=== PATIENT | male | born 1990 | race African-American/Black ===

== ENCOUNTER 2020-07-18 15:23 | Emergency (ER) | payer OTHER, SELFPAY ==
--- NOTE | ~2020-07-18 | XR_ITS ---
EXAMINATION: XR chest 2V DATE: 07/18/2020 16:20 INDICATION: Left chest pain. TECHNIQUE: Frontal and lateral views of the chest were obtained. COMPARISON: None. FINDINGS: The chest demonstrates clear lungs without pneumonia, pleural effusion, or pneumothorax. Th e heart size is normal. IMPRESSION: 1. No acute cardiopulmonary disease. Reviewed, dictated and finalized at location B.
[2020-07-18 15:40] VITALS: BP 155/88; PULSE 84; RESP 18; TEMP 36.6; O2SAT 98
--- NOTE | 2020-07-18 15:47 | ECG_ITS ---
Measurements Intervals [place] Rate: 87 P: 34 ND: 168 QRS: -5 QRSD: 101 T: 29 QT: 332 QTc: 400 Interpretive Statements SINUS RHYTHM ST ELEVATION CONSISTENT WITH INJURY, PERICARDITIS, OR EARLY REPOLARIZATION ABNORMAL ECG Electronically Signed On 07-18-2020 16:13:51 CDT by Jeanmarie Myrick D.O.
[2020-07-18 15:58] LABS: Basophils Percent Auto 0.3 % (0.2-1.2); Eosinophils Absolute Auto 0.1 K/mm3 (0-0.3); Eosinophils Percent Auto 1.7 % (0-4.4); Hematocrit 42.6 % (42.0-52.0); Hemoglobin 13.8 g/dL (14.0-18.0); Immature Granulocyte Absolute 0.02 K/mm3 (0.00-0.031); Immature Granulocyte Percent A 0.3 % (0-0.5); Lymphocytes Absolute Auto 2.84 K/mm3 (0.9-3.2); Lymphocytes Percent Auto 42.8 % (18.3-44.2); Mean Corpuscular HGB Conc 32.4 g/dl (32-36); Mean Corpuscular Hemoglobin 28.5 pg (26-34); Mean Platelet Volume 10.7 fl (7.4-10.4); Monocytes Absolute Auto 0.4 K/mm3 (0.1-0.6); Monocytes Percent Auto 5.6 % (2.6-8.5); Neutrophils Absolute Auto 3.3 K/mm3 (1.3-6.7); Neutrophils Percent Auto 49.3 % (45.5-73.1); Platelet Count Result 220 k/mm3 (150-375); Red Blood Count 4.84 M/mm3 (4.6-6.20); Red Cell Distribution Width 12.8 % (11.5-14.5); White Blood Count 6.6 K/mm3 (4.5-10.0)
[2020-07-18 16:10] LABS: Prothrombin Time 13.5 Seconds (11.1-14.7)
[2020-07-18 16:11] LABS: Partial Thromboplastin Time 31.3 SECONDS (22.3-36.8)
[2020-07-18 16:15] LABS: Anion Gap 5 mmol/L (8-16); Blood Urea Nitrogen 15 mg/dL (9-20); Calcium 9.3 mg/dL (8.4-10.2); Carbon Dioxide 28 mmol/L (22-30); Chloride 105 mmol/L (98-107); Estimated CRCL calculation 86 ml/min; Estimated Glomerular Filt Rate > 60; Glucose 109 mg/dL (75-110); Potassium 4.1 mmol/L (3.4-5.0); Sodium 138 mmol/L (137-145)
[2020-07-18 16:26] LABS: Troponin I < 0.012 ng/mL (0.000-0.034)
[2020-07-18 16:47] VITALS: PULSE 87
[2020-07-18 16:53] VITALS: BP 144/78; PULSE 82; RESP 18; O2SAT 98
--- NOTE | 2020-07-18 17:52 | ED.CHESTPAIN ---
HPI - Chest Pain General Chief Complaint: Chest Pain Stated Complaint: left side pain Time Seen by Provider: 07/18/20 16:47 Source: patient and RN notes reviewed Mode of arrival: ambulatory Limitations: no limitations History of Present Illness HPI narrative: Patient is a 30-year-old male who presents to emergency department for evaluation of abdominal and chest pain has been going on for over a month has seen his primary care for this was reassured but notes he continues to have the discomfort that is continuous in nature patient has not taken anything for his symptoms was prescribed a muscle relaxer in the past but has not taken it patient denies any cardiopulmonary disease patient on arrival is in the room in no distress. Related Data Allergies Allergy/AdvReac Type Severity Reaction Status Date / Time No Known Allergies Allergy Verified 07/18/20 17:02 Review of Systems Review of Systems: All systems reviewed & are unremarkable except as noted in HPI and below PMFSH Social History Social History (Updated 07/18/20 @ 17:54 by Rojelio Liz PA-C) Smoking status: Never smoker Substance use type: marijuana Exam Narrative: Exam Narrative: GENERAL: Well-appearing, well-nourished, and in no acute distress. HEAD: Normocephalic, atraumatic. EYES: PERRLA and EOMI. ENT: Nares clear, no rhinorrhea or epistaxis. Mucous membranes moist. NECK: Supple. No adenopathy or masses. CHEST: Clear to auscultation. No respiratory distress. No wheezes rales or rhonchi HEART: Regular rate and rhythm. No murmur heard. Normal peripheral pulses. ABDOMEN: Soft, nontender, nondistended EXTREMITIES: Normal range of motion. No edema. SKIN: Warm, dry, no rash. NEURO: No focal deficits. Alert and oriented x3. PSYCH: Normal mood and affect. Course Course Emergency Course: Patient presented with abdominal pain and chest pain which are largely reproducible in nature with breathing activity and movement patient in the room in no distress afebrile nontoxic-appearing ABCs and vital signs intact and stable patient has had the symptoms for over a month and will now be referred back to primary care with GI and cardiology consults and referrals as has been recommended by his primary care but is not followed up with the referrals Vital Signs Vital signs: Vital Signs Temperature 97.8 F 07/18/20 15:40 Pulse Rate 84 07/18/20 15:40 Respiratory Rate 18 07/18/20 15:40 Blood Pressure 155/88 H 07/18/20 15:40 Pulse Oximetry 98 07/18/20 15:40 Temperature 97.8 F 07/18/20 15:40 Pulse Rate 82 07/18/20 16:53 Respiratory Rate 18 07/18/20 16:53 Blood Pressure 144/78 H 07/18/20 16:53 Pulse Oximetry 98 07/18/20 16:53 MDM - Chest Pain MDM Narrative Medical decision making narrative: Patients EKGs and labs are without significant high risk changes. Cardiac risk factors were reviewed. Patient is felt likely to be low risk for ACS and reasonable for further risk stratification testing as an outpatient. Pain was not sudden or maximal in onset without tearing or ripping. quality. No other signs or symptoms to suggest aortic dissection. A low-risk Wells criteria is noted. PE is felt to be unlikely. No pneumonia or URI symptoms were seen on evaluation today. Patient is felt to b reasonable for continued evaluation as an outpatient. Lab Data Result diagrams: 07/18/20 15:52 07/18/20 15:52 Labs: Lab Results 07/18/20 07/18/20 07/18/20 Range/Units 15:52 15:52 15:52 WBC 6.6 (4.5-10.0) K/mm3 RBC 4.84 (4.6-6.20) M/mm3 Hgb 13.8 L (14.0-18.0) g/dL Hct 42.6 (42.0-52.0) % MCV 88.0 (80-100) fl MCH 28.5 (26-34) pg MCHC 32.4 (32-36) g/dl RDW 12.8 (11.5-14.5) % Plt Count 220 (150-375) k/mm3 MPV 10.7 H (7.4-10.4) fl Immature Gran % (Auto) 0.3 (0-0.5) % Neut % (Auto) 49.3 (45.5-73.1) % Lymph % (Auto) 42.8 (18.3-44.2) % [place] % (Auto) 5.6 (2.6-8.5)
[2020-07-18] MEDS: KETOROLAC (*BKC) 60 MG/2 ML VIAL IM (17:53)
[2020-07-18 18:04] VITALS: BP 144/89; PULSE 88; RESP 18; O2SAT 100
== END 2020-07-18 18:05 | disposition home or self-care (01) ==
PROVIDERS: Emergency Medicine; Emergency Provider Emergency Medicine
DX: R07.9 Chest pain, unspecified (principal)
CPT/HCPCS: 36415; 71046; 80048; 84484; 85025; 85610; 85730; 93005; 96372; 99284; J1885

== ENCOUNTER 2021-02-24 14:55 | Emergency (ER) | payer OTHER, SELFPAY ==
[2021-02-24 15:06] VITALS: BP 130/88; PULSE 78; RESP 18; TEMP 36.1; O2SAT 100
[2021-02-24 17:01] VITALS: BP 132/83; PULSE 76; RESP 18; O2SAT 100
--- NOTE | 2021-02-24 19:20 | ED.GENADULT ---
HPI - General Adult General Chief complaint: Urogenital-Male Stated complaint: side pain, STD check Time Seen by Provider: 02/24/21 18:50 Source: patient Mode of arrival: ambulatory Limitations: no limitations History of Present Illness HPI narrative: Patient presents for evaluation of penile discharge. He indicates symptoms of been present for the last 4 days. Discharge is thick and yellow. Denies any fever, chills, nausea, vomiting, abdominal pain, testicular pain and urinary symptoms. His girlfriend is here being treated for similar symptoms. They do not use condoms. No additional complaints or concerns. Review of Systems Review of Systems: CONSTITUTIONAL: Denies fever, chills, or sweats. EYES: Denies visual changes, redness, or discharge. ENT: Denies rhinorrhea, congestion, sore throat, or otalgia. CARDIOVASCULAR: Denies chest pain, palpitations, or edema. RESPIRATORY: Denies cough or dyspnea. GASTROINTESTINAL: Denies abdominal pain, nausea, vomiting, or diarrhea. GENITOURINARY: Denies dysuria or hematuria. SKIN: Denies rash or itching. MUSCULOSKELETAL: Denies back pain, joint pain, or myalgia. : Reports urethral discharge. Denies dysuria, urinary frequency NEUROLOGIC: Denies headache, numbness, dizziness, or weakness. PSYCHIATRIC: Denies anxiety or depression. [facility] Past Medical History Medical History (Updated 02/24/21 @ 19:25 by Nomi Mack, [facility], ) No pertinent past medical history Surgical History Surgical History No pertinent past surgical history Family History Family History Mother No pertinent family history Social History Social History Gender identity (if verbalized by the patient): Male Sexual Orientation (if Verbalized by the Patient): Straight or Heterosexual Spiritual care concerns: No Exam Narrative: GENERAL: Well-appearing, well-nourished, and in no acute distress. HEAD: Normocephalic, atraumatic. EYES: PERRLA and EOMI. ENT: Nares clear, no rhinorrhea or epistaxis. Mucous membranes moist. Oropharynx without tonsillar hypertrophy exudate or other lesions. Bilateral TMs pearly more nonbulging NECK: Supple. No adenopathy or masses. No carotid bruits or JVD CHEST: Clear to auscultation. No respiratory distress. No wheezes rales or rhonchi HEART: Regular rate and rhythm. No murmur heard. Normal peripheral pulses. ABDOMEN: Soft, nontender, nondistended, normal active bowel sounds. EXTREMITIES: Normal range of motion. No edema. GENITAL: No external genital lesions. No inguinal lymphadenopathy. No scrotal swelling. No testicular masses or tenderness. Thick dried white drainage at urethral orifice SKIN: Warm, dry, no rash. NEURO: No focal deficits. Alert and oriented x3. PSYCH: Normal mood and affect. Course Course Emergency Course: This is a 30-year-old male who presented with complaints of urethral discharge. His girlfriend is here to be examined for similar symptoms. Exam is concerning for STD. Her trichomonas exam was negative. Patient and his girlfriend are in a crandall to get out of the ER today to catch a bus home. He does not wish to stay for receipt of urinalysis. Treated with Rocephin and azithromycin. Advised on need to have comprehensive STI exam performed. Follow-up outpatient for further evaluation and treatment return for worsening symptoms. Patient agreed with plan of care. Vital Signs Vital signs: Vital Signs Temperature 36.1 C L 02/24/21 15:06 Pulse Rate 78 02/24/21 15:06 Respiratory Rate 18 02/24/21 15:06 Blood Pressure 130/88 02/24/21 15:06 Pulse Oximetry 100 02/24/21 15:06 Temperature 36.1 C L 02/24/21 15:06 Pulse Rate 76 02/24/21 17:01 Respiratory Rate 18 02/24/21 17:01 Blood Pressure 132/83 02/24/21 17:01 Pulse Oximetry 100 02/24/21 17:01
[2021-02-24] MEDS: cefTRIAXone 1 GM VIAL 0.5 GM IM (19:33)
[2021-02-24] MEDS: AZITHROMYCIN 250 MG TABLET 1000 MG PO (19:33)
[2021-02-24] MEDS: WATER, STERILE FOR INJECTION 10 ML VIAL XX (19:35)
[2021-02-24 19:43] VITALS: BP 136/86; PULSE 74; RESP 18; O2SAT 100
== END 2021-02-24 19:46 | disposition home or self-care (01) ==
PROVIDERS: Emergency Provider Nurse Practitioner
DX: Z20.2 Contact with and (suspected) exposure to infections with a predominantly sexual mode of transmission (principal)
CPT/HCPCS: 96372; 99283; A9270; J0696

== ENCOUNTER 2023-08-09 19:24 | Emergency (ER) | payer SELFPAY ==
[2023-08-09 19:27] VITALS: BP 138/71; PULSE 77; RESP 17; TEMP 36.6; O2SAT 100
--- NOTE | 2023-08-09 20:51 | ED.GENADULT ---
HPI - General Adult General Chief complaint: Skin/Abscess/Foreign Body Stated complaint: Rash to right arm and abd Time Seen by Provider: 08/09/23 20:44 History of Present Illness HPI narrative: Patient is a 33-year-old male who presents to the emergency department this evening complaining of a rash that he has noticed approximately 3 weeks ago. Patient states that he noticed a spot on his right upper and his right abdomen approximately 3 weeks ago. Patient states that he initially thought it was some form of infection and finished a course of antibiotics, however, the rash did not go away. Rash is a small round lesion which appears to be eczema versus psoriasis. Patient denies any history of eczema or psoriasis and as far as he is aware no family history of either. He denies any additional symptoms including any fevers or chills and denies any additional symptoms or concerns. Related Data Allergies Allergy/AdvReac Type Severity Reaction Status Date / Time No Known Allergies Allergy Verified 08/09/23 19:29 Review of Systems Review of Systems: All systems are reviewed and are negative unless stated otherwise in the HPI. [facility] Past Medical History Medical History No pertinent past medical history Surgical History Surgical History No pertinent past surgical history Family History Family History Mother No pertinent family history Social History Social History Smoking status: Never smoker Substance use type: marijuana Gender identity (if verbalized by the patient): Male Sexual Orientation (if Verbalized by the Patient): Straight or Heterosexual Spiritual care concerns: No Exam Narrative: General: Alert, awake, afebrile, in no acute distress. HEENT: PERRL, no rhinorrhea, no post nasal drip, oropharynx clear. Cardiovascular: Regular rate and rhythm, no murmurs, rubs or gallops, no peripheral edema. Respiratory: Clear to auscultation bilaterally, no tachypnea, no wheezing, no rhonchi, no rubs, no respiratory distress. Abdomen: Soft, nontender, nondistended, no rebound, no guarding, no peritoneal signs. Musculoskeletal: No joint swelling or deformity, normal muscle tone. Skin: Small round skin rash in the medial right upper extremity measuring approximately 2 by 2 cm and another lesion in the right mid abdominal wall measuring approximately 1 x 1 cm appears to be eczema versus psoriasis like in appearance, no surrounding erythema or any evidence of infection. Neurological: Alert and oriented to person, place, and time. Follows all commands. No focal deficits, speech is clear and fluent. Course Vital Signs Vital signs: Vital Signs Temperature 97.8 F 08/09/23 19:27 Pulse Rate 77 08/09/23 19:27 Respiratory Rate 17 08/09/23 19:27 Blood Pressure 138/71 08/09/23 19:27 Pulse Oximetry 100 08/09/23 19:27 Oxygen Delivery Room Air 08/09/23 19:27 Temperature 97.8 F 08/09/23 19:27 Pulse Rate 77 08/09/23 19:27 Respiratory Rate 17 08/09/23 19:27 Blood Pressure 138/71 08/09/23 19:27 Pulse Oximetry 100 08/09/23 19:27 Oxygen Delivery Room Air 08/09/23 19:27 Medical Decision Making MDM Narrative Medical decision making narrative: The patient was evaluated by myself in the emergency department. History is obtained from patient who is an independent historian and physical exam was performed. External medical records were reviewed at this time. Differential diagnosis considerations include eczema versus psoriasis. Comorbidities impacting this visit include none. I have evaluated and discussed social determinants of health with the patient that could potentially impact subsequent diagnosis and treatment plans. On repeat assessment of the patie
== END 2023-08-09 21:03 | disposition home or self-care (01) ==
PROVIDERS: Emergency Provider Emergency Medicine
DX: L30.9 Dermatitis, unspecified (principal)
CPT/HCPCS: 99283